=== PATIENT | female | born 1970 | race Caucasian/White ===

== ENCOUNTER 2021-05-12 12:15 | Inpatient (IN) | payer OTHER ==
[~2021-05-12] VITALS: Ht 144.8 cm; Wt 27.2 kg
[2021-05-12 13:55] LABS: HEMOGLOBIN 15.5 gm/dl (12.3-15.3); RED BLOOD COUNT 5.08 M/UL (4.00-5.10)
[2021-05-12 14:30] LABS: BUN/CREATININE RATIO 15 (0-10)
[2021-05-13 07:02] LABS: HEMOGLOBIN 13.5 gm/dl (12.3-15.3); RED BLOOD COUNT 4.55 M/UL (4.00-5.10)
[2021-05-13 07:24] LABS: BUN/CREATININE RATIO 15 (0-10)
[2021-05-14 02:52] LABS: HEMOGLOBIN 11.8 gm/dl (12.3-15.3)
[2021-05-14 02:55] LABS: RED BLOOD COUNT 4.08 M/UL (4.00-5.10); WHITE BLOOD COUNT 14.6 K/UL (4.5-11.0)
[2021-05-14 03:31] LABS: BUN/CREATININE RATIO 30 (0-10)
[2021-05-15 04:35] LABS: HEMOGLOBIN 12.9 gm/dl (12.3-15.3); RED BLOOD COUNT 4.34 M/UL (4.00-5.10); WHITE BLOOD COUNT 12.2 K/UL (4.5-11.0)
[2021-05-15 04:56] LABS: BUN/CREATININE RATIO 36 (0-10)
[2021-05-16] MEDS ORDERED: MEGACE 400400 MG/10 PO (09:23)
[2021-05-16] MEDS ORDERED: THERAGRAN M TAB1 EA PO (09:23)
[2021-05-16] MEDS ORDERED: TYLENOL 8 HOUR650 MG PO (09:23)
[2021-05-16] MEDS ORDERED: NICOTINE PATCH1 EAC1 TD (09:23)
[2021-05-16] MEDS ORDERED: SYMBICORT 80-41 INHA INH (09:23)
[2021-05-16] MEDS ORDERED: COMBIVENT RESPIM4 GM INH (09:23)
== END 2021-05-16 12:44 | disposition home or self-care (01) | DRG 177 ==
LOC: ER1 12:15 → M/S 16:20 → CDU 16:20 → M/S 19:42
PROVIDERS: Family Medicine; ADMIT Internal Medicine
PROC: 8E0ZXY6 Isolation (ICD-10-PCS; principal; 2021-05-12)
PROC: XW043E5 Introduction of Remdesivir Anti-infective into Central Vein, Percutaneous Approach, New Technology Group 5 (ICD-10-PCS; 2021-05-12)
PROC: 3E0333Z Introduction of Anti-inflammatory into Peripheral Vein, Percutaneous Approach (ICD-10-PCS; 2021-05-12)
DX: U07.1 COVID-19 (principal); J96.01 Acute respiratory failure with hypoxia; J96.02 Acute respiratory failure with hypercapnia; E43 Unspecified severe protein-calorie malnutrition; J44.1 Chronic obstructive pulmonary disease with (acute) exacerbation; Z68.1 Body mass index [BMI] 19.9 or less, adult; R64 Cachexia; F17.210 Nicotine dependence, cigarettes, uncomplicated; G89.29 Other chronic pain; M54.9 Dorsalgia, unspecified; E87.6 Hypokalemia; E83.39 Other disorders of phosphorus metabolism; Z71.6 Tobacco abuse counseling; Z87.39 Personal history of other diseases of the musculoskeletal system and connective tissue; Z98.890 Other specified postprocedural states
CPT/HCPCS: 36415; 36600; 71045; 80048; 80053; 82009; 82550; 82553; 82803; 83605; 83690; 83735; 84100; 84439; 84443; 84484; 85025; 85379; 85610; 86140; 87081; 87880; 93005; 94664; 94760; 96374; 96375; 97162; 97166; 99285; J0248; J1100; J1650; J2405; J2930; J7030; U0002

== ENCOUNTER → 2021-06-06 | Outpatient (CLI) | payer OTHER ==
[~2021-06-06] MED LIST: COMBIVENT RESPIM4 GM INH; MEGACE 400400 MG/10 PO; NICOTINE PATCH1 EAC1 TD; SYMBICORT 80-41 INHA INH; THERAGRAN M TAB1 EA PO; TYLENOL 8 HOUR650 MG PO
== END ==
LOC: EXRD 15:48
DX: J96.90 Respiratory failure, unspecified, unspecified whether with hypoxia or hypercapnia (principal); U09.9 Post COVID-19 condition, unspecified; R94.2 Abnormal results of pulmonary function studies
CPT/HCPCS: 94060; 94729